=== PATIENT | female | born 1990 | race Hispanic/Latino ===

== ENCOUNTER 2018-08-14 09:02 | Emergency (ER) | payer OTHER ==
[2018-08-14 09:06] VITALS: BMI 21.2
[2018-08-14] MEDS ORDERED: Oxycodone/Acetaminophen 5/325 mg Tab PO STA ×2 (10:37→15:58)
[2018-08-14] MEDS ORDERED: Oxycodone/Acetaminophen 5/325 mg Tab ONE ×2 (10:59→17:07)
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
[2018-08-14] MEDS ORDERED: Lidocaine PF 2% (5 ml) Inj (For Cardiac Arrhy) ONE (14:48)
[2018-08-14] MEDS ORDERED: Povidone Iodine Oint 10% Foilpak UD ONE (14:48)
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
--- NOTE | 2018-08-14 15:17 | CP.PCM.PCO ---
Physician Communication Note - Physician Communication Note Physician Communication Note: Anterior comp. pressure was measured under the supervision of Dr. Vaughan.
--- NOTE | 2018-08-14 15:23 | CP.PCM.PCO ---
Physician Communication Note - Physician Communication Note Physician Communication Note: Anterior compartment was measured under Dr. Vaughan's supervision. 11mmHg
[2018-08-14 17:15] VITALS: BP 124/64; PULSE 76; RESP 18; TEMP 98; O2SAT 99
== END 2018-08-14 17:21 | disposition home or self-care (01) ==
LOC: H.ER 09:02
DX: S82.402A Unspecified fracture of shaft of left fibula, initial encounter for closed fracture (principal); V03.10XA Pedestrian on foot injured in collision with car, pick-up truck or van in traffic accident, initial encounter; Y92.410 Unspecified street and highway as the place of occurrence of the external cause